=== PATIENT | male | born 1985 | race Caucasian/White ===

== ENCOUNTER → 2016-03-19 | Outpatient (CLI) | payer OTHER ==
--- NOTE | 2016-03-19 11:41 | DX ---
PA and Lateral Chest X-ray 1110 hours History: Cough and Shortness of breath. Rule out pneumonia.. Findings: Heart size and pulmonary vasculature are normal. The lungs are clear without infiltrates or effusions. There is no pneumothorax. The osseous structures are intact. Impression: Normal chest x-ray. These findings were called to Phoebe Castrejon PA-C at 1137 hours.
== END ==
LOC: CIMAGING 11:02
DX: R05 Cough (principal); R06.02 Shortness of breath
CPT/HCPCS: 71020-PO